=== PATIENT | female | born 1980 | race Caucasian/White ===

== ENCOUNTER 2019-07-05 21:23 | Emergency (ER) | payer MEDICAID, SELFPAY ==
[2019-07-05 21:23] VITALS: BP 139/96; PULSE 73; RESP 16; TEMP 37; O2SAT 100; BMI 32.2
--- NOTE | 2019-07-05 22:01 | US_ITS ---
STUDY: ABDOMINAL ULTRASOUND - RIGHT UPPER QUADRANT REASON FOR VISIT: Female, 38 years old ABD PAIN- AFTER EATING TECHNIQUE: Ultrasound evaluation of the right upper quadrant was performed with real-time and static koo-scale imaging. TECHNICAL QUALITY: Adequate. COMPARISON: None. FINDINGS: Liver: The liver measures 14.9 cm. There is normal echogenicity of the liver. The bile ducts are within normal limits. There is hepatic color flow. The direction of portal flow is hepatopetal. There is no demonstrated mass lesion. Gallbladder: Normal distended gallbladder. The gallbladder wall measures 2 mm. There is a negative sonographic Klein''s sign. There is no pericholecystic fluid. There are no gallstones. Common Bile Duct (C.B.D.): The common bile duct measures 4 mm. Pancreas: Normal size of the head, body and tail of the pancreas. There is normal echogenicity of the pancreas. There is no demonstrated pancreatic mass or cyst. There is mild dilatation of the pancreatic duct measuring up to 3 mm. Right Kidney: Normal size of the right kidney. The right kidney measures 12.1 x 6.2 x 4.7 cm. Normal renal cortex. The right cortex measures 1.5 cm. There is no demonstrated renal mass or cyst. There is no right hydronephrosis. US/Gallbladder IMPRESSION: Mild dilatation of the pancreatic duct, measuring up to 3 mm. The remainder of the study is within normal limits. Electronically Signed: Wyatt Cain MD at 22:53 EST , Service support ,
[2019-07-05] MEDS: Morphine 4 MG/ML Syringe IV (22:10)
[2019-07-05] MEDS: Ondansetron 4 MG/2 ML Vial IV (22:10)
[2019-07-05] MEDS: 0.9% Normal Saline 1,000 ML 1000 ML IV (22:10)
[2019-07-05 22:12] LABS: Absolute Lymphocyte Count 2.19 X10^3/uL (0.83-4.51); Absolute Neutrophil Count 5.1 X10^3/uL (2.0-7.7); Basophil# 0.02 X10^3/uL; Basophil% 0.3 % (0-1); Eosinophil# 0.13 X10^3/uL; Eosinophils% 1.6 % (0-5); Hematocrit 38.9 % (37-47); Hemoglobin 12.6 g/dL (12.0-15.0); Lymphocyte # 2.19 X10^3/ul (4.0); Lymphocyte % 27.7 % (19-41); Mean Corp Hgb Conc 32.4 g/dL (32-36); Mean Corpuscular Hgb 28.5 pg (27.0-32.0); Mean Platelet Vol. 11.4 fl (6.2-12.0); Monocyte# 0.47 X10^3/uL; Monocyte% 5.9 % (0-10); NRBC Flagged by Analyzer 0 % (0-5); Neutrophil # 5.08 X10^3/uL (2.7-7.7); Neutrophil % 64.1 % (47-70); Platelet Count 279 K/mm3 (150-450); RBC Distribution Width CV 12.6 % (11.6-14.6); RBC Distribution Width SD 40.8 fl (35.1-43.9); Red Blood Count 4.42 M/mm3 (4.2-5.4); White Blood Count 7.9 K/mm3 (4.4-11.0)
[2019-07-05 22:19] LABS: Bacteria 0 SEEN /hpf (None Seen); Mucous, Urine 0 SEEN /hpf (<or=2+)
[2019-07-05 22:23] LABS: AST(SGOT) 13 U/L (15-37); Alanine Aminotransfer ALT/SGPT 23 U/L (13-56); Albumin, Serum 4.2 g/dL (3.2-5.0); Alkaline Phosphatase 67 U/L (45-117); Anion Gap 6 (5-15); BUN 15 mg/dL (7-18); BUN/Creat Ratio 16.7 RATIO (10-20); Bilirubin, Direct 0.12 mg/dL (0.00-0.30); Calcium,Total 9.2 mg/dL (8.5-10.1); Chloride 109 mmol/L (98-107); EST Glomerular Filtration Rate 74 mL/min (>60); Est Glom Filt Rate - Afr Amer 89 mL/min (>60); Estimated Creatinine Clearance 69.42 ml/min; Globulin 3.6 g/dL (2.2-4.2); Glucose 95 mg/dL (74-106); Lipase 161 U/L (73-393); Potassium 3.4 mmol/L (3.5-5.1); Protein, Total 7.8 g/dL (6.4-8.2); Sodium Level 141 mmol/L (136-145)
[2019-07-05 22:28] LABS: Color, Urine Yellow (Yellow); Glucose, Dipstick Normal (Normal); Ketone-Dipstick Negative (Negative); Leukocyte Esterase-Dipstick 100 /ul (Negative); Nitrite-Dipstick Negative (Negative); Occult Blood-Urine Negative /ul (Negative); Protein-Dipstick Negative (Negative); Urine Bilirubin Dipstick Negative (Negative); Urine Clarity Sl. Cloudy (Clear); Urine Urobilinogen 1 mg/dl (Normal)
[2019-07-05 22:33] LABS: Red Blood Cells-Urine 0-5 SEEN /hpf (0-5); White Blood Cells 0-5 SEEN /hpf (0-5)
[2019-07-05 22:34] LABS: Amorphous Sediment 1+; Squamous Epithelial Cells - UA 0 SEEN /hpf (5-10)
--- NOTE | 2019-07-05 23:34 | ED.DCSUM_ITS ---
History of Present Illness Chief Complaint: Abd Pain Informant: Patient - Abdominal Pain/Flank Pain Onset: Month(s) Context: Gradual Onset Timing: Intermittent Quality: Aching Location: Epigastric Narrative: Patient is a 38-year-old female presenting with a 1 year history of worsening epigastric abdominal pain. Patient states she ate [employer] today which seem to worsen her symptoms. She notes the pain is worse after eating. The pain does not radiate. She does have some associated nausea but no vomiting or diarrhea. The symptoms have really been worsening over the past few months. The pain is also worse with direct palpation over her epigastric region. Patient denies any associated chest pain, shortness of breath or difficulty breathing. She denies any urinary symptoms. She states she only drinks alcohol occasionally is not drinking anything in the last few days. She denies any other complaints at this time. She notes she was tested for H. pylori at one point which was negative. She was referred to a GI doctor but never went. She is not currently on any antacids. Past Medical History - Allergies and Home Meds Allergies/Adverse Reactions: Allergies No Known Allergies Allergy (Verified 07/05/19 21:43) Primary Care Physician: Ebenezer Almaraz MD [Primary Care Provider] - Past Medical History: None Surgical History: - - Lateral tubal ligation, wrist surgery Smoking Status: Never smoker Review of Systems General: Denies: Chills, Fever, Sweats Eyes: Denies: Visual changes - bilaterally, Diplopia ENT: Denies: Rhinorrhea, Sore throat Cardiovascular: Denies: Chest pain, Palpitations Respiratory: Denies: Dyspnea, Cough, Dyspnea on exertion Gastrointestinal: Reports: Abdominal pain, Nausea. Denies: Vomiting, Diarrhea, Melena, Hematochezia Genitourinary: Denies: Dysuria, Hematuria, Frequency Musculoskeletal: Denies: Back pain, Extremity Pain Skin: Denies: Rash, Wounds Neurological: Denies: Headache, Weakness, Numbness Physical Exam Vital Signs/Narrative: Vital Signs Temp Pulse Resp BP Pulse Ox 07/05/19 21:23 98.6 F 73 16 139/96 H 100 Inital Vital Signs reviewed: Yes General: Well nourished, Well developed, No Acute Distress Head: Normocephalic, Atraumatic Eyes: Perrl, EOMI ENT: Moist mucous membranes, No rhinorrhea Neck: Supple, Nontender Cardiovascular: Regular rate, Regular rhythm, No murmurs Respiratory: No distress, CTA bilaterally, Chest nontender Abdomen: Soft, Nondistended, Normal bowel sounds, Tender, Klein's sign. Negative for: Guarding, Rebound tenderness Back: Nontender, Normal Inspection. Negative for: CVA tenderness Extremities: Nontender, No edema Skin: Normal color, No rash Neurological: Alert, Oriented x3, Cranial nerves II-XII grossly intact, Normal Strength, Normal Sensation Psychological: Normal affect, Normal Mood Diagnostic/Tx/Re-eval Clinical Impression(s) from Imaging Studies Gallbladder Ultrasound 07/05/19 22:01 IMPRESSION: Mild dilatation of the pancreatic duct, measuring up to 3 mm. The remainder of the study is within normal limits. Electronically Signed: Wyatt Cain MD at 22:53 EST , Service support , Laboratory Data 07/05/19 07/05/19 07/05/19 21:53 21:53 22:15 WBC 7.9 RBC 4.42 Hgb 12.6 Hct 38.9 MCV 88.0 MCH 28.5 MCHC 32.4 RDW Std Deviation 40.8 RDW Coeff of Jethro 12.6 Plt Count 279 MPV 11.4 Immature Gran % (Auto) 0.400 Neut % (Auto) 64.1 Lymph % (Auto) 27.7 [place] % (Auto) 5.9 Eos % (Auto) 1.6 Baso % (Auto) 0.3 Absolute Neuts (auto) 5.1 Absolute Lymphs (auto) 2.19 Nucleated RBC % 0 Sodium 141 Potassium 3.4 L Chloride 109 H Carbon Dioxide 26.0 Anion Gap 6 BUN 15 Creatinine 0.90 Estim Creat Clear Calc 69.42 Est GFR (MDRD) Af Amer 89 Est GFR (MDRD) Non-Af 74 BUN/Creatinine Ratio 16.7 Glucose 95 Calcium 9.2 Total Bilirubin 0.30 Direct Bilirubin 0.12 AST 13 L ALT 23 Alkaline Phosphatase 67 Total Protein 7.8 Albumin 4.2 Globulin 3.6 Lipase 161 Urine Color Yellow Urine Clarity Sl. Cloudy Urine pH 7.0 Ur Specific [place] 1.030 Urine Protein Negative Urine Glucose (UA) Normal Urine Ketones Negative Urine Occult Blood Negative Urine Nitrite Negative Urine Bilirubin Negative Urine Urobilinogen 1 H Ur Leukocyte Esterase 100 H Urine RBC 0-5 SEEN Urine WBC 0-5 SEEN Ur Squamous Epith Cells 0 SEEN Amorphous Sediment 1+ Urine Bacteria 0 SEEN Urine Mucus 0 SEEN - Medical Decision Making Patient is evaluated for worsening epigastric pain. It seems to correlate with eating. She has had pain in her right upper quadrant on examination as well as her epigastric region. She is initially treated with morphine, Zofran and fluids. Work-up is largely negative including CBC, CMP and lipase. Urinalysis shows 100 leukoesterase but patient is not having any urinary symptoms. I do not suspect a UTI. She does not have any lower abdominal pain or CVA tenderness. Ultrasound obtained which shows a normal gallbladder. I suspect her pain is likely from her stomach. Is possible she has peptic ulcer disease, GERD or gastritis. Patient will be started on Pepcid. She is instructed to follow-up with GI. Patient is agreeable this plan. Patient is counseled on signs and symptoms requiring return to the emergency room. Patient verbalizes agreement and understand this plan. Patient discharged home in stable and improved condition. ED Disposition - Plan for ED Patient: Disposition: Home or Assisted Living Diagnosis: Epigastric abdominal pain Instructions: ABDOMINAL PAIN, Unknown Cause, (Female), GASTRITIS vs. ULCER Prescriptions: Famotidine [Pepcid] 20 mg PO BID #28 tablet Referrals: Ebenezer Almaraz MD [Primary Care Provider] - Elmer Mock MD [NON-STAFF] - Additional Instructions: Your work-up was normal today. There is no obvious source of your pain. Is possible the pain could be from your stomach such as peptic ulcer disease or GERD. Please follow-up with the GI doctor. Please return the emergency room if you develop any worsening symptoms.
[2019-07-05 23:50] VITALS: BP 136/80; PULSE 70; RESP 16; O2SAT 99
== END 2019-07-05 23:51 | disposition home or self-care (01) ==
PROVIDERS: Emergency Provider Emergency Medicine; Family Provider Family Medicine; PCP Family Medicine
DX: R10.13 Epigastric pain (principal); R11.0 Nausea
CPT/HCPCS: 76705; 80048; 80076; 81001; 83690; 85025; 96361; 96374; 96375; 99283; J7030; A4216; J2405

== ENCOUNTER 2022-12-06 05:55 | Emergency (ER) | payer MEDICAID, SELFPAY ==
[2022-12-06 05:57] VITALS: BP 132/92; PULSE 76; RESP 18; TEMP 36.8; O2SAT 98; BMI 32.3
--- NOTE | 2022-12-06 06:03 | RAD_ITS ---
EXAM: XR ABDOMEN, 2 VIEWS AND XR CHEST, 1 VIEW CLINICAL INDICATION: Pain -- Right upper quadrant and epigastric area, bloated, Pain -- Right upper quadrant and epigastric area, bloated, TECHNIQUE: Frontal view of the chest, frontal view of the abdomen/pelvis and upright or decubitus view of the abdomen. COMPARISON: No relevant prior studies available. FINDINGS: CHEST: LUNGS AND PLEURAL SPACES: Unremarkable. No consolidation or edema. No pneumothorax. No effusion. HEART: Unremarkable. Cardiac silhouette not enlarged. MEDIASTINUM: Central airways and mediastinal contour are unremarkable. ABDOMEN: INTRAPERITONEAL SPACE: No free air. GASTROINTESTINAL TRACT: There is moderately prominent colonic feces. ORGANS: Unremarkable as visualized. No organomegaly. No abnormal calcifications. TUBES, LINES AND DEVICES: None. BONES/JOINTS: No acute findings. SOFT TISSUES: No acute findings. RAD/Acute Abdomen Inc Chest IMPRESSION: 1. No evidence for acute cardiopulmonary pathology. 2. Somewhat prominent colonic feces may represent constipation. Otherwise, unremarkable bowel gas pattern. Electronically Signed: Hayder Beatty MD at 6:54 EDT ,
[2022-12-06 06:15] LABS: Absolute Lymphocyte Count 2.08 X10^3/uL (0.83-4.51); Absolute Neutrophil Count 4.6 X10^3/uL (2.0-7.7); Basophil# 0.02 X10^3/uL; Basophil% 0.3 % (0-1); Eosinophil# 0.16 X10^3/uL; Eosinophils% 2.2 % (0-5); Hematocrit 34.6 % (37-47); Hemoglobin 11.7 g/dL (12.0-15.0); Lymphocyte # 2.08 X10^3/ul (0.83-4.51); Lymphocyte % 28.3 % (19-41); Mean Corp Hgb Conc 33.8 g/dL (32-36); Mean Corpuscular Hgb 30.1 pg (27.0-32.0); Mean Corpuscular Volume 88.9 fL (81-99); Mean Platelet Vol. 11.1 fl (6.2-12.0); Monocyte# 0.44 X10^3/uL; NRBC Flagged by Analyzer 0 % (0-5); Neutrophil # 4.63 X10^3/uL (2.7-7.7); Neutrophil % 62.9 % (47-70); Platelet Count 205 K/mm3 (150-450); RBC Distribution Width CV 12.9 % (11.6-14.6); RBC Distribution Width SD 41.8 fl (35.1-43.9); Red Blood Count 3.89 M/mm3 (4.2-5.4); White Blood Count 7.4 K/mm3 (4.4-11.0)
[2022-12-06 06:32] LABS: Anion Gap 7 (5-15); BUN 18 mg/dL (7-18); BUN/Creat Ratio 23.5 RATIO (10-20); Calcium,Total 8.8 mg/dL (8.5-10.1); Chloride 109 mmol/L (98-107); Creatinine, Serum 0.76 mg/dL (0.55-1.02); EST Glomerular Filtration Rate 87 mL/min (>60); Est Glom Filt Rate - Afr Amer 106 mL/min (>60); Estimated Creatinine Clearance 78.95 ml/min; Glucose 106 mg/dL (74-106); Potassium 3.6 mmol/L (3.5-5.1); Sodium Level 139 mmol/L (136-145)
--- NOTE | 2022-12-06 06:36 | EDS_ITS ---
HPI History of Present Illness Chief Complaint: Abd Pain Detail of Chief Complaint: Abdominal pain and bloating since cessation Informant: patient Onset/Context/Timing Onset: Days Context: Gradual Onset Timing: Continuous Quality: Fullness and bloating Location: Upper abdomen Current Severity: Mild Maximum Severity: Severe Worsened by: Pressure on my hiatal hernia . And worse this morning after flagellated Relieved by: Nothing Associated Symptoms Associated Symptoms: Distention Narrative Narrative: Patient is a 42-year-old woman status post cholecystectomy who presents with upper abdominal pain, fullness and bloating with nausea and constipation. She denies fever, chills night sweats. She denies headache, visual, ocular auditory symptoms. She denies cardiac or respiratory symptoms. She denies urologic symptoms. She denies intolerance to food. She denies anorexia. Her stool was hard. She had a bowel movement a couple of days ago. There is no change in the color. She states her stool was large for her. Her stool was also hard. Prior similar symptoms: Yes Recent Illness/Hospitalization: No PFSH PFSH Medical History (Updated 12/06/22 @ 07:[address] Patrick Patino MD) Graves disease Mohan's disease Hernia Kidney stone Home Medications NK 12/06/22 [History Last Taken Unknown] Allergy/AdvReac Type Severity Reaction Status Date / Time No Known Allergies Allergy Verified 12/06/22 05:59 Surgical History (Updated 12/06/22 @ 06:42 by Amalia Shin) History of cholecystectomy Social History (Updated 12/06/22 @ 06:[address] Patrick Patino MD) Smoking Status: Never smoker substance use type: does not use ROS ROS ED Constitutional Constitutional ED: Denies chills, fever(s), subjective, sweats or weight loss Eyes Eyes: Denies blurry vision, change in vision or diplopia ENT ENT ED: Denies ear pain, rhinorrhea or sore throat Cardiovascular Cardiovascular: Denies chest pain or palpitations Respiratory/Chest Respiratory/Chest: Denies cough, dyspnea or dyspnea on exertion Gastrointestinal Gastrointestinal: Reports abdominal pain, constipation and nausea; Denies diarrhea, melena or vomiting Genitourinary Genitourinary ED: Denies dysuria, hematuria or urinary frequency Musculoskeletal Musculoskeletal: Denies arthralgias, back pain, myalgias or neck pain Integumentary Denies rash Neurologic Neurologic: Denies headache(s), paresthesias or weakness Psychiatric Psychiatric: Reports anxiety Endocrine Endocrinology: Denies cold intolerance or heat intolerance Hematologic/Lymphatic Hematologic/Lymphatic: Reports systems reviewed and no addt'l complaints, except as documented EXAM Physical Exam Const Vital Signs: 12/06/22 05:57 Temperature 98.2 F Temperature Source Temporal Pulse Rate 76 Respiratory Rate 18 Blood Pressure 132/92 H Blood Pressure Mean 105 Pulse Ox 98 Oxygen Delivery Method Room Air Positive well nourished, well developed and obese General Appearance ED: well developed and NAD; Negative for cyanotic, diaphoretic or pallor Nutritional Appearance: obese HEENT Reports dry mucous membranes HEENT Narrative: Head is atraumatic and normocephalic. Nares patent. Uvula is midline. Posterior pharynx is normal. Ears are normal. Mouth ED: Yes dry mucous membranes Mouth: dry mucous membranes Eyes PERRL and EOMs intact bilaterally General Eye ED: Negative for pale conjunctiva or scleral icterus Neck no lymphadenopathy, supple and no JVD Chest Wall inspection of chest normal and palpation of chest normal Resp normal respiratory effort and clear to auscultation bilaterally Cardio regular rate, regular rhythm, S1 normal heart sound, S2 normal heart sound and no murmurs GI no masses; Negative for non-tender, non-distended or hepatosplenomegaly Inspection: abdominal distention Auscultation: hypoactive bowel sounds Palpation: soft and tender epigastric and RUQ; Negative for guarding, splenomegaly or rebound tenderness present Back/Spine no CVA tenderness Thoracic Spine / Upper Back: Negative for thoracic spinal tenderness Lumbar Spine / Lower Back: Negative for lumbar spinal tenderness Extremity normal to inspection General Extremety ED: Negative for edema or tenderness General Extremity: Negative for edema Neuro oriented x3 and CN's II-XII intact bilaterally Sensorium / Orientation: alert Psych mental status grossly normal Skin no rashes or lesions noted, no wounds and skin turgor normal General Skin Exam: elasticity normal; Negative for jaundice or pallor MDM MDM MDM Narrative Medical decision making narrative: Differentials abdominal pain of unknown etiology, obstipation, doubt [place] cholelithiasis, doubt pancreatitis, doubt lower lobe pneumonia since patient is not tachypneic, tachycardic and there are no abnormal auscultatory findings. Abdominal series was obtained to assess for ileus, obstipation/fecal stasis. CBC to assess white count differential and BMP to assess renal function. History & Record Review Discussion w/independent historian: Patient Additional record(s) reviewed:: Prior ED visit (Patient presented with epigastric pain July 2019. Etiology of pain was unknown at that time.) Lab Data Attestation: I reviewed the patient's lab results. Lab results narrative: CBC is remarkable for H&H 11.7 and 34.6 basic metabolic panel is well. BUN to creatinine ratio is slightly elevated at at 23.5-1. BUN and creatinine, however, are normal. Labs: Laboratory Results - last 24 hr 12/06/22 12/06/22 06:06 06:06 WBC 7.4 RBC 3.89 L Hgb 11.7 L Hct 34.6 L MCV 88.9 MCH 30.1 MCHC 33.8 RDW Std Deviation 41.8 RDW Coeff of Jethro 12.9 Plt Count 205 MPV 11.1 Immature Gran % (Auto) 0.300 Neut % (Auto) 62.9 Lymph % (Auto) 28.3 [place] % (Auto) 6.0 Eos % (Auto) 2.2 Baso % (Auto) 0.3 Absolute Neuts (auto) 4.6 Absolute Lymphs (auto) 2.08 Nucleated RBC % 0 Sodium 139 Potassium 3.6 Chloride 109 H Carbon Dioxide 23.0 Anion Gap 7 BUN 18 Creatinine 0.76 Estim Creat Clear Calc 78.95 Est GFR (MDRD) Af Amer 106 Est GFR (MDRD) Non-Af 87 BUN/Creatinine Ratio 23.5 H Glucose 106 Calcium 8.8 Radiography Chest X-Ray - ED: Read by ED Physician (Abdominal series which included chest x- ray and 2 views of the abdomen reveals massive gas pattern with increased fecal stasis. There is no evidence of pneumoperitoneum. There is no evidence of renal calculi or cholelithiasis. There is noted by the bony structures. Chest portion is unremarkable.) Diagnostic Testing: Clinical Impression(s) from Imaging Studies Acute Abdomen Series 12/06/22 06:03 IMPRESSION: 1. No evidence for acute cardiopulmonary pathology. 2. Somewhat prominent colonic feces may represent constipation. Otherwise, unremarkable bowel gas pattern. Electronically Signed: Hayder Beatty MD at 6:54 EDT , Treatment and Re-Evaluation :: Outpatient treatment for obstipation. She also was told she is slightly anemic. Her MAMI globin is down approximately 1 g from 3-1/2 years ago. This will need to be followed by her doctor. This was not pursued since she denies and does not have black or maroon-colored stool. Furthermore, indices are normal and do not indicate microcytic anemia which would raise suspicion for GI bleed. Discharge Plan Triage Chief Complaint: Abd Pain ED Provider: Patrick Patino Dx/Rx/DC Orders Clinical Impression: Obstipation, Hiatal hernia, Anemia, unspecified Instructions: ED Constipation (Adult) Prescriptions: No Action NK Primary Care Provider: Ebenezer Almaraz Referrals: Ebenezer Almaraz MD [Primary Care Provider] - 5-7 Days Activity Restrictions/Additional Instructions: 1. Drink a glass of MiraLAX every 1-2 hours while awake until you start to have results 2. Contact Dr. Almaraz's office for evaluation of your anemia Disposition Disposition: Home, Self Care
== END 2022-12-06 07:21 | disposition home or self-care (01) ==
PROVIDERS: Emergency Provider Emergency Medicine; PCP Family Medicine; Visit Provider Emergency Medicine
DX: K59.00 Constipation, unspecified (principal); K44.9 Diaphragmatic hernia without obstruction or gangrene; Z90.49 Acquired absence of other specified parts of digestive tract; D64.9 Anemia, unspecified
CPT/HCPCS: 74022; 80048; 85025; 99283; A4216